=== PATIENT | male | born 1990 | race Caucasian/White ===

== ENCOUNTER 2017-01-30 10:03 | Emergency (ER) | payer BC ==
[2017-01-30 10:10] VITALS: BP 130/69
--- NOTE | 2017-01-30 10:40 | UC ---
Complaint Male HPI - History of Current Complaint Chief Complaint: UCGeneralIllness Stated Complaint: PERSONAL Hx Obtained From: Patient - patient and girlfriend used "cock-ring" last night during sex and pt fell asleep with ring on. he states it was "tight" this am but he was able to remove ring. since removal, he has been able to urinate w/o prob, no blood, also is able to have full erection. pt denies seeing any bruising, swelling or redness in genital area - Allergies/Home Medications Allergies/Adverse Reactions: Allergies Allergy/AdvReac Type Severity Reaction Status Date / Time bees Allergy anaph Uncoded 01/30/17 10:05 peanuts Allergy anaph Uncoded 01/30/17 10:04 Home Medications: Home Medications Amphetamine-Dextroamphetamine [Adderall 15 mg] 15 mg PO DAILY 01/30/17 [History Confirmed 01/30/17] Sertraline* [Zoloft*] 50 mg PO DAILY 01/30/17 [History Confirmed 01/30/17] PMH/Surg Hx/FS Hx/Imm Hx Previously Healthy: Yes Psychological History: Other - ADHD Other Psychological History: ADHD - Surgical History Surgical History: None - Family History Known Family History: Positive: None - Social History Occupation: Student Lives: With Family Alcohol Use: Weekly Substance Use Type: None Smoking Status (MU): Never Smoked Tobacco Review of Systems Constitutional: Negative Skin: Negative Respiratory: Negative Cardiovascular: Negative Genitourinary: Negative, Other - asymptomactic Neurovascular: Negative Musculoskeletal: Negative Neurological: Negative Psychological: Negative All Other Systems Reviewed And Are Negative: Yes Physical Exam Triage Information Reviewed: Yes Appearance: Well-Appearing, No Pain Distress, Well-Nourished Vital Signs: Initial Vital Signs Temp 97.7 F 01/30/17 10:06 Pulse 73 01/30/17 10:06 Resp 18 01/30/17 10:06 BP 130/69 01/30/17 10:06 Pulse Ox 100 01/30/17 10:06 Respiratory Exam: Normal Cardiovascular Exam: Normal Skin Exam: Other - no redness, ecchymosis, swelling in genital area. pos bilateral crimasteric reflexes, bilateral testicals decended and non-tender, no mass, no hernia, scrotom normal: no swelling, penis: normal, no swelling, redness, d/c or pain. Complaint Male Course/Dx - Differential Dx/Diagnosis Differential Diagnosis/HQI/PQRI: Trauma Provider Diagnoses: normal genital exam Discharge - Discharge Plan Condition: Good Disposition: HOME Patient Education Materials: Testicle Pain (ED) Additional Instructions: avoid use of penile/scrotal rings they can potentially lead to penile/ testicular strangulation with severe consequences There is no evidence of an acute injury on today's exam. However, monitor for swelling, bruising , blood in urine or increasing pain at anytime Report to ER immediately if problems arise
== END 2017-01-30 10:46 | disposition home or self-care (01) ==
LOC: UCEAST 10:03
DX: Z03.89 Encounter for observation for other suspected diseases and conditions ruled out (principal); F90.9 Attention-deficit hyperactivity disorder, unspecified type
CPT/HCPCS: 99201; G0463

== ENCOUNTER 2019-06-04 00:16 | Emergency (ER) | payer SELFPAY ==
[2019-06-04] MEDS ORDERED: Ondansetron ODT TAB* 4 MG SL PRN (01:00)
--- NOTE | 2019-06-04 01:21 | ED ---
Substance Abuse/Use - HPI Summary HPI Summary: This patient is a 29 year old M presenting to [facility] with a chief complaint of alcohol intoxication since prior to arrival. Pt was brought in after his date called EMS. he states he was drunk and he threw up. Pt take Zoloft and Adderall. Pt is not allergic to medication. Pt had marijuana, and alcohol tonight. denies any trauma or LOC. - History Of Current Complaint Chief Complaint: EDSubstanceAbuse Stated Complaint: ETOH PER EMS Time Seen by Provider: 06/04/19 00:28 Hx Obtained From: Patient Ingestion History: Type/Name Of Drug - marijuana, and alcohol tonight Overdose Characteristics: Oral Timing Of Abuse: Binge Use Character: Lethargic Aggravating Factor(s): Nothing Alleviating Factor(s): Nothing Associated Signs And Symptoms: Nausea, Vomiting - Allergies/Home Medications Allergies/Adverse Reactions: Allergies Allergy/AdvReac Type Severity Reaction Status Date / Time bees Allergy anaph Uncoded 01/30/17 10:05 peanuts Allergy anaph Uncoded 01/30/17 10:04 PMH/Surg Hx/FS Hx/Imm Hx Sensory History: Denies: Hx Legally Blind, Hx Deafness Opthamlomology History: Denies: Hx Legally Blind EENT History: Denies: Hx Deafness - Surgical History Surgical History: None Infectious Disease History: No Infectious Disease History: Denies: Hx Clostridium Difficile, Hx Hepatitis, Hx Human Immunodeficiency Virus (HIV), Hx of Known/Suspected MRSA, Hx Shingles, Hx Tuberculosis, Hx Known/ Suspected VRE, Hx Known/Suspected VRSA, History Other Infectious Disease, Traveled Outside the [place] in Last 30 Days - Family History Known Family History: Negative: Blood Disorder - Social History Alcohol Use: Weekly Substance Use Type: Reports: None Hx Tobacco Use: No Smoking Status (MU): Never Smoked Tobacco Review of Systems Positive: Other - alcohol intoxication. Negative: Fever Positive: Vomiting, Nausea All Other Systems Reviewed And Are Negative: Yes Physical Exam - Summary Physical Exam Summary: General: Well-developed, Well-nourished male. No acute distress. HEENT: Normocephalic, Atraumatic. Eyes: injected conjunctiva, PERRL. Oropharynx: Clear, mucous membranes moist, (-) exudates. Neck: Soft, FROM, (-) lymphadenopathy, (-) thyromegaly, (-) JVD. Cardiovascular: Normal sinus rhythm, (-) murmur. Lungs: Clear to auscultation bilaterally (-) wheezes, (-) rales, (-) rhonchi. Abdomen: Soft, non-tender, non-distended, (-) organomegaly, normal bowel sounds. Back: (-) CVA tenderness Extremities: No edema. Skin: Warm, dry, (-) rash. Neuro: Alert and oriented x3, no focal deficits. Slurring words Psychiatric: Mood normal, affect normal. Triage Information Reviewed: Yes Vital Signs On Initial Exam: Initial Vitals Temp Pulse Resp BP Pulse Ox 97.8 F 79 17 126/79 100 06/04/19 00:23 06/04/19 00:23 06/04/19 00:23 06/04/19 00:23 06/04/19 00:23 Vital Signs Reviewed: Yes Procedures - Sedation Patient Received Moderate/Deep Sedation with Procedure: No Diagnostics - Vital Signs Vital Signs Temp Pulse Resp BP Pulse Ox 06/04/19 00:23 97.8 F 79 17 126/79 100 - Laboratory Lab Statement: Any lab studies that have been ordered have been reviewed, and results considered in the medical decision making process. Course/Dx - Course Course Of Treatment: 29-year-old male presents by ambulance with acute alcohol intoxication and vomiting. Patient is alert and oriented 3. Patient given Zofran ODT. Blood alcohol level 140. He rested for a period time and then was able to obtain safe transportation home when sober. - Diagnoses Provider Diagnoses: Acute alcohol intoxication Discharge ED - Sign-Out/Discharge Documenting (check all that apply): Patient Departure - Discharge - Discharge Plan Condition: Stable Disposition: HOME Patient Education Materials: Alcohol Intoxication (ED) Referrals: [facility] [Outside] Additional Instructions: Please follow up with your primary care physician within three days. Please return to ED for any new or worsening symptoms. - Billing Disposition and Condition Condition: STABLE Disposition: Home - Attestation Statements Document Initiated by Scribe: Yes Documenting Scribe: Lexie Lilly Provider For Whom Scribe is Documenting (Include Credential): Dr. Page Cervantes MD Scribe Attestation: Lexie Rodriguez, scribed for Dr. Page Cervantes MD on 06/04/19 at 0607. Scribe Documentation Reviewed: Yes Provider Attestation: The documentation as recorded by the scribe, Lexie Lilly accurately reflects the service I personally performed and the decisions made by me, Dr. Page Cervantes MD Status of Scribe Document: Viewed
[2019-06-04 05:16] VITALS: BP 127/82
== END 2019-06-04 05:00 | disposition home or self-care (01) ==
LOC: ED 00:16
DX: F10.929 Alcohol use, unspecified with intoxication, unspecified (principal)
CPT/HCPCS: 36415; 80320; 99282; G0480